=== PATIENT | female | born 1960 | race Caucasian/White ===

== ENCOUNTER 2022-10-17 15:48 | Emergency (ER) | payer OTHER ==
[~2022-10-17] VITALS: Ht 170.2 cm; Wt 70.3 kg
[2022-10-17 15:50] VITALS: BP 144/70; PULSE 78; RESP 20; TEMP 98; O2SAT 100
[2022-10-17] MEDS ORDERED: cephALEXin 500 MG CAP PO ONE (16:25)
[2022-10-17] MEDS ORDERED: ACETAMINOPHEN EXTRA STRENGTH 500 MG TAB PO ONE (16:25)
[2022-10-17] MEDS ORDERED: ONDANSETRON 4 MG ODT PO ONE (16:25)
[2022-10-17] MEDS ORDERED: CEPH-588 PO (16:27)
[2022-10-17] MEDS ORDERED: ONDA-188 PO (16:28)
--- NOTE | 2022-10-17 16:45 | NUR ---
Patient discharged with v/s stable. Written and verbal after care instructions given and explained. Patient alert, oriented and verbalized understanding of instructions. Ambulatory with steady gait. All questions addressed prior to discharge. ID band removed. Patient advised to follow up with PMD. Rx of REENA EWING (SENT) given. Patient educated on indication of medication including possible reaction and side effects. Opportunity to ask questions provided and answered.
== END 2022-10-17 16:45 | disposition home or self-care (01) ==
LOC: MED 15:48
DX: N39.0 Urinary tract infection, site not specified (principal); E11.9 Type 2 diabetes mellitus without complications; I10 Essential (primary) hypertension; E03.9 Hypothyroidism, unspecified; E78.5 Hyperlipidemia, unspecified; Z79.899 Other long term (current) drug therapy; Z79.2 Long term (current) use of antibiotics
CPT/HCPCS: 99284; Q0162